=== PATIENT | female | born 1960 | race African-American/Black ===

== ENCOUNTER 2016-10-03 23:36 | Emergency (ER) | payer MEDICAID, OTHER ==
[~2016-10-03] VITALS: Ht 160 cm; Wt 65.8 kg
[~2016-10-03 23:36] MED LIST: ALBUTEROL SULF8.5 GM INH; AMLODIPINE BESY10 MG ORAL; CENTRUM COMPLE1 EAC1 PO; CEPHALEXIN500 MG ORAL; CLARITIN5 MG ORAL; DOCUSATE SODIU100 MG ORAL; DULERA 100 MCG/13 GM INH; FLUOXETINE HCL20 M2 ORAL; IBUPROFEN200 MG ORAL; KEFLEX500 MG ORAL; LASIX20 M1 ORAL; METOPROLOL SUCC25 MG ORAL; NASONEX17 GM NASAL; NEXIUM20 MG ORAL; NORCO 5-325 TA1 EACH ORAL; OMEPRAZOLE20 M2 ORAL; PREDNISONE20 MG ORAL; SPIRONOLACTONE100 MG ORAL; VENTOLIN HFA18 GM INH
[2016-10-04] VITALS: BP 126/75
[2016-10-04] MEDS ORDERED: Pantoprazole Inj IV ONE
--- NOTE | 2016-10-04 00:06 | Emergency Room Report ---
History of Present Illness General Chief Complaint: Abdominal Pain Source: Patient, Medical Record Present Illness HPI This is a 56-year-old female with a history of alcohol abuse with secondary cirrhosis. She's been here several times for the same thing. She presents with chief complaint abdominal pain with vomiting and diarrhea. No blood in it. Onset for last 3 days. Pain is 10 out of 10. Diffuse in nature. No fever or chills. No chest pain. Similar symptoms in the past. Denies any drug use. Allergies: Coded Allergies: No Known Allergies (Unverified , 11/27/15) Patient History Past Medical History: see triage record, old chart reviewed, COPD Past Surgical History: other Pertinent Family History: none Social History: Reports: alcohol use Now: No Immunizations: other Reviewed Nursing Documentation: PMH: Agreed, PSxH: Agreed Nursing Documentation-PMH Hx Cardiac Problems: No Hx Hypertension: Yes Hx Pacemaker: No Hx Asthma: Yes Hx COPD: Yes Hx Diabetes: No Hx Cancer: No Hx Gastrointestinal Problems: Yes - ascities Hx Dialysis: No Hx Neurological Problems: No Hx Cerebrovascular Accident: No Hx Seizures: No Review of Systems Eye: Denies: blurred vision, eye pain ENT: Denies: ear pain, nose congestion, throat swelling Respiratory: Denies: cough, shortness of breath Cardiovascular: Denies: chest pain, palpitations Gastrointestinal: Reports: abdominal pain, diarrhea, nausea, vomiting Musculoskeletal: Denies: back pain, joint pain Skin: Denies: rash Neurological: Denies: headache, numbness Endocrine: Denies: increased thirst, increased urine Hematologic/Lymphatic: Denies: easy bruising All Other Systems: negative except mentioned in HPI Physical Exam Vital Signs Date Time Temp Pulse Resp B/P Pulse Ox O2 Delivery O2 Flow Rate FiO2 10/03/16 23:47 98.1 104 18 137/77 95 Room Air vitals unremarkable Sp02 EP Interpretation: reviewed, normal General Appearance: well appearing, no apparent distress, alert, other - Smell of alcoholic beverage on breath Head: normocephalic, atraumatic Eyes: bilateral eye EOMI, bilateral eye PERRL ENT: hearing grossly normal, normal pharynx Neck: full range of motion, supple, no meningismus Respiratory: chest non-tender, lungs clear, normal breath sounds Cardiovascular #1: regular rate, rhythm, no murmur Gastrointestinal: normal bowel sounds, no mass, no organomegaly, no bruit, abnormal bowel sounds, tenderness - Diffuse, other - Abdomen is protuberant with ascites. Soft however. Musculoskeletal: back normal, gait/station normal, normal range of motion Psychiatric: mood/affect normal Skin: warm/dry Medical Decision Making Diagnostic Impression: Primary Impression: Abdominal pain Qualified Codes: R10.84 - Generalized abdominal pain Additional Impressions: Alcoholic cirrhosis of liver with ascites Alcohol dependence Qualified Codes: F10.20 - Alcohol dependence, uncomplicated Anemia Qualified Codes: D64.9 - Anemia, unspecified UTI (urinary tract infection) Qualified Codes: N30.00 - Acute cystitis without hematuria Cocaine abuse Proteinuria ER Course Patient presents with abdominal pain with vomiting and diarrhea. She has no vomiting or diarrhea. Tolerating by mouth now. Most likely secondary to alcohol and/or drug abuse. Hemoglobin is stable. No evidence of bleeding. We' ll discharge home. She refused to give a urine sample. UA positive for infection. She grew out E coli in the past that is sensitive to keflex. UDS positive for cocaine. Lab Results Impression labs show alcoholic liver disease. Last Vital Signs Date Time Temp Pulse Resp B/P Pulse Ox O2 Delivery O2 Flow Rate FiO2 10/03/16 23:47 98.1 104 18 137/77 95 Room Air Status: improved Disposition: HOME, SELF-CARE Condition: Stable Scripts Cephalexin* (KEFLEX*) 500 Mg Capsule 500 MG ORAL TID, #21 CAP 0 Refills Prov: SHANNAN CASAS M.D. 10/04/16 Omeprazole Magnesium (PRILOSEC OTC) 20 Mg Tablet. 20 MG ORAL DAILY, #30 TAB Prov: SHANNAN CASAS M.D. 10/04/16 Additional Instructions: Stop using drugs and alcohol. Go to rehabilitation. Followup your DrGarry in 2-3 days. Return if Symptom worsen. SHANNAN CASAS M.D. Oct 04, 2016 00:06
[2016-10-04] MEDS ORDERED: Morphine Sulfate 4mg/ml Inj IVP ONE (00:15)
[2016-10-04 00:28] LABS: MEAN CORPUSCULAR HEMOGLOBIN 34.1 PG (27.0-31.0); MEAN CORPUSCULAR HGB CONC 32.6 G/DL (32.0-36.0); MEAN CORPUSCULAR VOLUME 105 FL (80-99); MEAN PLATELET VOLUME 9.6 FL (6.5-10.1); PLATELET COUNT 72 K/UL (150-450); RED BLOOD COUNT 3.34 M/UL (4.20-5.40); RED CELL DISTRIBUTION WIDTH 15.4 % (11.6-14.8); WHITE BLOOD COUNT 8.3 K/UL (4.8-10.8)
[2016-10-04 00:42] LABS: ALANINE AMINOTRANSFERASE 29 U/L (3-33); ALBUMIN/GLOBULIN RATIO 0.3 (1.0-2.7); ANION GAP 16 (5-15); ASPARTATE AMINO TRANSFERASE 108 U/L (5-40); CALCIUM 8.1 mg/dL (8.6-10.2); CARBON DIOXIDE 23 mEQ/L (20-30); CHLORIDE 101 mEQ/L (98-107); CREATININE 0.8 mg/dL (0.5-0.9); GLOMERULAR FILTRATION RATE > 60 mL/min (>60); HEMOLYSIS 6; LIPASE 90 U/L (< 60); POTASSIUM 3.5 mEQ/L (3.4-4.9); SODIUM 140 mEQ/L (135-145); TOTAL PROTEIN 8.7 g/dL (6.6-8.7)
[2016-10-04 00:45] LABS: PROTHROMBIN TIME 19.5 SEC (9.30-11.50)
[2016-10-04 00:46] LABS: INR 1.9 (0.9-1.1)
[2016-10-04] MEDS ORDERED: PRILOSEC OTC20 MG ORAL (01:04)
[2016-10-04 01:50] LABS: APPEARANCE,URINE CLOUDY; KETONES,URINE NEGATIVE (NEGATIVE); LEUKOCYTE ESTERASE ,URINE 3+ (NEGATIVE); NITRITE,URINE NEGATIVE (NEGATIVE); PH,URINE 6 (4.5-8.0); PROTEIN,URINE 2+ (NEGATIVE); UROBILINOGEN,URINE 8 MG/DL (0.0-1.0)
[2016-10-04 01:58] LABS: BACTERIA,URINE MANY /HPF; RBC,URINE TNTC /HPF (0 - 2); SQUAMOUS EPITHELIAL CELL,UR MANY /LPF (NONE/OCC); WBC,URINE TNTC /HPF (0 - 2)
[2016-10-04 01:59] LABS: MUCUS,URINE MODERATE /LPF (NONE/OCC)
[2016-10-04 02:00] VITALS: BP 115/70
[2016-10-04 02:03] LABS: ICTOTEST NEGATIVE
[2016-10-04] MEDS ORDERED: cefTRIAXone 1 GM in NS 55 ML IVPB ONE (02:15)
[2016-10-04] MEDS ORDERED: KEFLEX500 MG ORAL (03:23)
[2016-10-04 03:40] VITALS: BP 115/78
== END 2016-10-04 03:40 | disposition home or self-care (01) ==
LOC: EMR 23:59
DX: R10.84 Generalized abdominal pain (principal); K70.31 Alcoholic cirrhosis of liver with ascites; F10.20 Alcohol dependence, uncomplicated; D64.9 Anemia, unspecified; N30.00 Acute cystitis without hematuria; F14.10 Cocaine abuse, uncomplicated; R80.9 Proteinuria, unspecified; I10 Essential (primary) hypertension; J44.9 Chronic obstructive pulmonary disease, unspecified; J45.909 Unspecified asthma, uncomplicated; R11.10 Vomiting, unspecified; R19.7 Diarrhea, unspecified
CPT/HCPCS: 36415; 80053; 80300; 81003; 82248; 83690; 85025; 85610; 85730; 87086; 87181; 96374; 96375; 99284; C9113; J0696; J2270; J2405

== ENCOUNTER 2016-11-05 19:54 | Emergency (ER) | payer OTHER ==
[~2016-11-05] VITALS: Ht 167.6 cm; Wt 68.0 kg
[~2016-11-05 19:54] MED LIST changes: +PRILOSEC OTC20 MG ORAL
[2016-11-05 20:30] VITALS: BP 134/80
[2016-11-05 20:44] LABS: MEAN CORPUSCULAR HEMOGLOBIN 33.6 PG (27.0-31.0); MEAN CORPUSCULAR HGB CONC 30.7 G/DL (32.0-36.0); MEAN CORPUSCULAR VOLUME 110 FL (80-99); MEAN PLATELET VOLUME 9.5 FL (6.5-10.1); PLATELET COUNT 73 K/UL (150-450); RED BLOOD COUNT 3.15 M/UL (4.20-5.40); RED CELL DISTRIBUTION WIDTH 16.5 % (11.6-14.8); WHITE BLOOD COUNT 6.1 K/UL (4.8-10.8)
[2016-11-05] MEDS ORDERED: DuoNeb 0.5-3(2.5)mg/3ml neb HHN ONE (20:45)
[2016-11-05] MEDS ORDERED: Spironolactone 50mg tab ORAL ONE (20:45)
[2016-11-05 20:56] LABS: TROPONIN I < 0.30 ng/mL (<=0.30)
[2016-11-05 20:59] LABS: ALANINE AMINOTRANSFERASE 28 U/L (3-33); ALBUMIN/GLOBULIN RATIO 0.3 (1.0-2.7); ANION GAP 17 (5-15); ASPARTATE AMINO TRANSFERASE 99 U/L (5-40); CARBON DIOXIDE 22 mEQ/L (20-30); CHLORIDE 96 mEQ/L (98-107); CREATININE 0.8 mg/dL (0.5-0.9); GLOMERULAR FILTRATION RATE > 60 mL/min (>60); HEMOLYSIS 5; POTASSIUM 2.9 mEQ/L (3.4-4.9); SODIUM 135 mEQ/L (135-145); TOTAL PROTEIN 9.1 g/dL (6.6-8.7)
[2016-11-05 21:18] LABS: BILIRUBIN,DIRECT 1.6 mg/dL (0.1-0.3)
[2016-11-05 21:37] VITALS: BP 123/70
[2016-11-05] MEDS ORDERED: POTASSIUM CHLO10 MEQ ORAL (21:39)
[2016-11-05 21:51] LABS: ANISOCYTOSIS 2+; BAND NEUTROPHILS % (MANUAL) 1 % (0-8); EOSINOPHILS % (MANUAL) 2 % (0-3); LYMPHOCYTES % (MANUAL) 34 % (20-45); MACROCYTES 2+; NEUTROPHILS % (MANUAL) 42 % (45-75); POLYCHROMASIA 1+; TOTAL CELLS COUNTED 100
[2016-11-05 21:52] LABS: BASOPHILS % (MANUAL) 0 % (0-2); PLATELET ESTIMATE DECREASED; PLATELET MORPHOLOGY NORMAL
[2016-11-05 22:00] VITALS: BP 123/70
--- NOTE | 2016-11-06 09:12 | Diagnostic Imaging Report ---
Indication: SOB Technique: One view of the chest Comparison: 04/20/2016 Findings: There may be minimal left perihilar and right infrahilar atelectasis or consolidation. Lungs and pleural spaces are otherwise clear. The heart is borderline enlarged. Impression: Equivocal minimal right infrahilar and left perihilar atelectasis or consolidation Borderline cardiomegaly
--- NOTE | 2016-11-07 15:05 | Emergency Room Report ---
History of Present Illness General Chief Complaint: Abdominal Pain Source: Patient, EMS Present Illness HPI Patient is a 56-year-old female who presented after increased difficulty breathing and abdominal distention. Patient prior history of cirrhosis. Patient had recently been having increased difficulty breathing. Patient prior history of COPD. Patient gradual onset of symptoms. Patient reports not taking her diuretics do to them making her urinate frequently. The patient had moderate difficulty breathing. Allergies: Coded Allergies: No Known Allergies (Unverified , 11/27/15) Patient History Past Medical History: see triage record, COPD Reviewed Nursing Documentation: PMH: Agreed, PSxH: Agreed Nursing Documentation-PMH Past Medical History: No History, Except For Hx Cardiac Problems: No Hx Hypertension: Yes Hx Pacemaker: No Hx Asthma: Yes Hx COPD: Yes Hx Diabetes: No Hx Cancer: No Hx Gastrointestinal Problems: Yes - liver cirrhosis Hx Dialysis: No History Of Psychiatric Problem: Yes - anxiety Hx Neurological Problems: No Hx Cerebrovascular Accident: No Hx Seizures: No Review of Systems All Other Systems: negative except mentioned in HPI Physical Exam Vital Signs Date Time Temp Pulse Resp B/P Pulse Ox O2 Delivery O2 Flow Rate FiO2 11/05/16 19:55 98.6 86 16 140/88 96 Room Air 11/05/16 20:30 2.0 11/05/16 20:52 28 Sp02 EP Interpretation: reviewed, normal General Appearance: alert, mild distress Head: atraumatic ENT: normal ENT inspection, hearing grossly normal, normal voice Neck: normal inspection, full range of motion, supple, no bony tend Respiratory: normal inspection, lungs clear, normal breath sounds, no respiratory distress, no retraction, no wheezing Cardiovascular #1: regular rate, rhythm, edema Gastrointestinal: normal inspection, normal bowel sounds, no guarding, no hernia, other - fluid wave, distended, nontender Genitourinary: no CVA tenderness Musculoskeletal: normal inspection, back normal, normal range of motion Neurologic: normal inspection, alert, responsive, speech normal Psychiatric: normal inspection, judgement/insight normal, mood/affect normal Skin: normal inspection, normal color, no rash Medical Decision Making Diagnostic Impression: Primary Impression: abdominal pain Additional Impressions: AMA Alcoholic cirrhosis of liver with ascites ER Course Patient presented for abdominal pain. Differential diagnoses included ischemic bowel, appendicitis, perforated viscus, abdominal aortic aneurysm, inferior myocardial infarction, viral gastroenteritis Because of complexity of patient's case laboratory testing and imaging studies were ordered. Patient was given Tylenol for pain. She is given a breathing treatment. Patient stated that she subsequently want to leave. The patient was advised that she should stay in the hospital for therapeutic paracentesis. The patient was advised risk benefits alternatives of leaving AGAINST MEDICAL ADVICE and he indicated understanding and all questions are answered patient still continued want to leave and signed AGAINST MEDICAL ADVICE. Despite risks including but not limited to disability and worsening of current lifestyle. The patient was advised to return at anytime. Labs Test 11/05/16 20:22 11/05/16 20:28 Urine Opiates Screen Negative (NEGATIVE) Urine Barbiturates Screen Negative (NEGATIVE) Phencyclidine (PCP) Screen Negative (NEGATIVE) Urine Amphetamines Screen Negative (NEGATIVE) Urine Benzodiazepines Screen Positive (NEGATIVE) Urine Cocaine Screen Negative (NEGATIVE) Urine Marijuana (THC) Screen Negative (NEGATIVE) White Blood Count 6.1 K/UL (4.8-10.8) Red Blood Count 3.15 M/UL (4.20-5.40) Hemoglobin 10.6 G/DL (12.0-16.0) Hematocrit 34.5 % (37.0-47.0) Mean Corpuscular Volume 110 FL (80-99) Mean Corpuscular Hemoglobin 33.6 PG (27.0-31.0) Mean Corpuscular Hemoglobin Concent 30.7 G/DL (32.0-36.0) Red Cell Distribution Width 16.5 % (11.6-14.8) Platelet Count 73 K/UL (150-450) Mean Platelet Volume 9.5 FL (6.5-10.1) Neutrophils (%) (Auto) % (45.0-75.0) Lymphocytes (%) (Auto) % (20.0-45.0) Monocytes (%) (Auto) % (1.0-10.0) Eosinophils (%) (Auto) % (0.0-3.0) Basophils (%) (Auto) % (0.0-2.0) Differential Total Cells Counted 100 Neutrophils % (Manual) 42 % (45-75) Lymphocytes % (Manual) 34 % (20-45) Monocytes % (Manual) 21 % (1-10) Eosinophils % (Manual) 2 % (0-3) Basophils % (Manual) 0 % (0-2) Band Neutrophils 1 % (0-8) Platelet Estimate Decreased Platelet Morphology Normal Polychromasia 1+ Anisocytosis 2+ Macrocytosis 2+ Sodium Level 135 mEQ/L (135-145) Potassium Level 2.9 mEQ/L (3.4-4.9) Chloride Level 96 mEQ/L (98-107) Carbon Dioxide Level 22 mEQ/L (20-30) Anion Gap 17 (5-15) Blood Urea Nitrogen 4 mg/dL (7-23) Creatinine 0.8 mg/dL (0.5-0.9) Estimat Glomerular Filtration Rate > 60 mL/min (>60) Glucose Level 146 mg/dL (74-106) Calcium Level 8.0 mg/dL (8.6-10.2) Total Bilirubin 3.5 mg/dL (0.0-1.2) Direct Bilirubin 1.6 mg/dL (0.1-0.3) Aspartate Amino Transf (AST/SGOT) 99 U/L (5-40) Alanine Aminotransferase (ALT/SGPT) 28 U/L (3-33) Alkaline Phosphatase 156 U/L (35-104) Total Creatine Kinase 213 U/L (26-140) Creatine Kinase MB 3.0 ng/mL (< 3.8) Creatine Kinase MB Relative Index 1.4 Troponin I < 0.30 ng/mL (<=0.30) Pro-B-Type Natriuretic Peptide 57 pg/mL (0-125) Total Protein 9.1 g/dL (6.6-8.7) Albumin 2.3 g/dL (3.5-5.2) Globulin 6.8 g/dL Albumin/Globulin Ratio 0.3 (1.0-2.7) Last Vital Signs Date Time Temp Pulse Resp B/P Pulse Ox O2 Delivery O2 Flow Rate FiO2 11/05/16 22:00 98.6 97 18 123/70 100 Nasal Cannula 2.0 28 Status: improved Disposition: AGAINST MEDICAL ADVICE Condition: Stable Scripts Potassium Chloride* (K-DUR*) 10 Meq Capsule.er 10 MEQ ORAL DAILY, #7 TAB 0 Refills Prov: Juan C Otero 11/05/16 Referrals: [facility],REFERRING (PCP) Patient Instructions: Alcoholic Liver Disease, Abdominal Pain, Adult Additional Instructions: take your diuretics previously prescribed. Follow up with your primary care physician. Return if you change your mind and want further treatment Juan C Otero Nov 07, 2016 15:05
== END 2016-11-05 22:10 | disposition left against medical advice (07) ==
LOC: EDBD 19:54 → EDUNIT# 19:54 → EMR 22:08
DX: K70.31 Alcoholic cirrhosis of liver with ascites (principal); R10.9 Unspecified abdominal pain; F41.9 Anxiety disorder, unspecified; J44.9 Chronic obstructive pulmonary disease, unspecified; J45.909 Unspecified asthma, uncomplicated; I10 Essential (primary) hypertension
CPT/HCPCS: 36415; 71010; 80053; 80300; 82248; 82550; 82553; 83880; 84484; 85007; 85025; 93005; 94640; 94664; 99283; J7620; J8499